=== PATIENT | male | born 1950 | race Caucasian/White ===

== ENCOUNTER → 2018-10-24 | Day surgery (SDC) | payer MEDICARE, OTHER ==
[~2018-10-24] MED LIST: Lactated Ringers 1,000 ML IV SCH; Propofol 200 MG/20 ML SDV IV ONE
[2018-10-24 11:02] VITALS: BP 134/78
--- NOTE | 2018-10-24 13:36 | OR ---
DATE OF OPERATION: 10/24/2018 PREOPERATIVE DIAGNOSIS: 1. GASTROESOPHAGEAL REFLUX DISEASE. 2. CROHN DISEASE. POSTOPERATIVE DIAGNOSIS: 1. GASTROESOPHAGEAL REFLUX DISEASE. 2. CROHN DISEASE. SURGEON: Erick Daigle MD PROCEDURE: 1. EGD WITH BIOPSY X1, HILDA. 2. FULL-LENGTH COLONOSCOPY WITH BIOPSY X6. ANESTHESIA: WEB SEARCH EVALUATOR. COMPLICATIONS: None. SPECIMEN: 1. Duodenal bulb biopsy x1. 2. Antral HILDA. 3. Colon biopsies x6. FINDINGS: 1. Full-length EGD. 2. Mild duodenitis, likely Crohn's related. 3. Small hiatal hernia without distal esophagitis, stricturing, ulceration, or Ramirez's changes. 4. Full-length colonoscopy. 5. Diffuse Crohn's with pseudopolyposis. RECOMMENDATIONS: Ongoing GERD treatment with Dr. Benitez. Recommend the patient sees GI for surveillance for his Crohn disease given the fact that he is a high- risk patient. INDICATIONS: The patient was seen by his primary physician. Apparently, he has a history of reflux. He 5 years ago had a colonoscopy which confirmed his inflammatory bowel disease with diffuse polyposis, likely pseudopolyps. At that time, we recommended patient have routine followup yearly with GI. This is actually his 1st scope since then. DESCRIPTION OF PROCEDURE: The patient was prepped and draped, placed in the left lateral decubitus position. A lubricated Olympus gastroscope was inserted over a bit and advanced to cricopharyngeus area and easily intubated in the esophagus. The esophageal lining was benign in its entire course. The Z-line was crisp and sharp around 39 cm. The patient does have a small hiatal hernia with no spontaneous reflux to visualize. There was no distal esophagitis, stricturing, ulceration, or Ramirez's changes. The scope was advanced in the stomach, through the pylorus, and into the 2nd portion of the duodenum. The patient had some very mild duodenitis extending from there and into the duodenal bulb. We did a biopsy, it is likely related to his Crohn's. The scope was brought back into the stomach and retroflexed. The upper fundus and cardia looked benign. Upon straightening, the entire stomach lining including the fundus and antrum showed no signs of any peptic ulcer disease, polyp, mass, or otherwise. A CLOtest was obtained. Air was then suctioned from the stomach and the scope removed without complication. A lubricated Olympus colonoscope was then inserted and easily advanced to the cecum. We were able to directly visualize the ileocecal valve and palpate the light in the right lower quadrant. The bowel prep was adequate. Upon withdrawal, the patient had evidence of diffuse colitis, most prominent in the sigmoid area, but present as well in the right colon, typical for a very mild- appearing Crohn's with skip areas and no ren ulcerations. We did do biopsies throughout the colon at the hepatic and splenic flexure, multiple in the sigmoid and rectosigmoid region, totalling 5. The patient does have diffuse disease and appears to have pseudopolyps small and large and varying sizes throughout the colon, most notably from the splenic flexure, extending down to the rectosigmoid junction. Three of these were at areas where we did do biopsies. The patient had a few scattered diverticula, but no other worrisome lesions, masses, or signs of malignancy were seen. The rectal vault was benign. Retroflexion of the scope in the rectum showed no perianal lesions. Air was then suctioned, the scope removed without complication. TAM/MESFIN /[id number]
== END ==
LOC: CC.SDS 07:53
PROVIDERS: ATTEND Family Medicine
DX: D12.5 Benign neoplasm of sigmoid colon (principal); K57.31 Diverticulosis of large intestine without perforation or abscess with bleeding; K29.81 Duodenitis with bleeding; K31.89 Other diseases of stomach and duodenum; K52.9 Noninfective gastroenteritis and colitis, unspecified; K63.89 Other specified diseases of intestine; K50.90 Crohn's disease, unspecified, without complications; K21.9 Gastro-esophageal reflux disease without esophagitis; K44.9 Diaphragmatic hernia without obstruction or gangrene; E78.5 Hyperlipidemia, unspecified; Z88.1 Allergy status to other antibiotic agents; Z88.8 Allergy status to other drugs, medicaments and biological substances
CPT/HCPCS: 87081; J2704; J7120